=== PATIENT | female | born 1985 | race Caucasian/White ===

== ENCOUNTER 2022-02-09 17:11 | Emergency (ER) | payer MEDICAID ==
[2022-02-09] MEDS ORDERED: metroNIDAZOLE 250 MG Tab PO ONE (20:48)
[2022-02-09] MEDS ORDERED: Doxycycline Monohydrate 100 MG Cap PO ONE (20:48)
[2022-02-09] MEDS ORDERED: Diphtheria,Pertussis(Acell),Tetanus Vaccine 0.5 ML Syringe IM ONE (20:55)
[2022-02-09] MEDS ORDERED: Diphtheria,Pertussis(Acell),Tetanus Vaccine 0.5 ML Syringe ONE (21:10)
[2022-02-09 21:27] VITALS: BP 139/96; PULSE 79
== END 2022-02-09 21:27 | disposition home or self-care (01) ==
LOC: JD.ED 17:11
DX: S01.85XA Open bite of other part of head, initial encounter (principal); Z88.0 Allergy status to penicillin; Z88.1 Allergy status to other antibiotic agents; Z23 Encounter for immunization; W54.0XXA Bitten by dog, initial encounter
CPT/HCPCS: 12011; 90471; 90715; 99283; A9270